=== PATIENT | male | born 1945 | race Caucasian/White ===

== ENCOUNTER → 2017-06-29 | Outpatient (CLI) | payer MEDICARE ==
[~2017-06-29] MED LIST: COUMADIN2 MG PO
--- NOTE | 2017-06-29 11:55 | Diagnostic Imaging Report ---
PROCEDURE: X-RAY UPPER GI SERIES WITH AIR CONTRAST TECHNIQUE: Effervescent crystals and barium were ingested by mouth and multiple fluoroscopic spot images of the esophagus, stomach, and proximal small bowel were obtained. Fluoroscopy time: 1.3 minutes Air Kerma: 34.25 mGy COMPARISON: None. INDICATIONS: REFLUX, HAITAL HERNIA FINDINGS: ESOPHAGUS: Motility: Within normal limits. Mucosa: Unremarkable. Distensibility: Normal. GASTROESOPHAGEAL JUNCTION: Small sliding hiatal hernia GASTROESOPHAGEAL REFLUX: Mild reflux in the lower third of the esophagus. STOMACH: Normally distensible and demonstrates normal contours and mucosal pattern. DUODENUM: Bulb and sweep are normal. Duodenal-jejunal junction is in the normal expected position. IMPRESSION: Small sliding hiatal hernia with associated gastroesophageal reflux. Dictated by: Rolando Potter M.D. on 06/29/2017 at 12:04 Electronically approved by: Rolando Potter M.D. on 06/29/2017 at 12:04
== END ==
LOC: DX 09:13
PROVIDERS: ATTEND Internal Medicine
DX: K21.0 Gastro-esophageal reflux disease with esophagitis (principal)
CPT/HCPCS: 74246

== ENCOUNTER 2019-04-03 12:48 | Emergency (ER) | payer MEDICARE ==
[~2019-04-03] VITALS: Ht 177.8 cm; Wt 74.8 kg
--- OUTSIDE RECORDS SUMMARY | 2019-04-03 12:51 | XMS REPORT ---
Author Author [facility] Address Unknown Phone Unavailable Care Team Providers Care Agriculture Engineer Name Role Phone REKHA CLEMENTS Unavailable Unavailable Problems This patient has no known problems. Allergies, Adverse Reactions, Alerts This patient has no known allergies or adverse reactions. Medications This patient has no known medications. Results Test Description Test Time Test Comments Text Results Atomic Results Result Comments UPPER GI W/AIR CONTR [place] [id number] Patient Name: LION BLOOD MR #: [id number] : 1945 Age/Sex: 71/M Req #: [id number] [facility] Physician: Ordered by: REKHA CLEMENTS MD Report #: [id number] Location: DX Room/Bed: Procedure: [id number] DX/UPPER GI W/AIR CONTR Exam Date: 06/29/17 Exam Time: 929 REPORT STATUS: Signed PROCEDURE: X-RAY UPPER GI SERIES WITH AIR CONTRAST TECHNIQUE: Effervescent crystals and barium were ingested by mouth and multiple fluoroscopic spot images of the esophagus, stomach, and proximal small bowel were obtained. Fluoroscopy time: 1.3 minutes Air Kerma: 34.25 mGy COMPARISON: None. INDICATIONS: REFLUX, HAITAL HERNIA FINDINGS: ESOPHAGUS: Motility: Within normal limits. Mucosa: Unremarkable. Distensibility: Normal. GASTROESOPHAGEAL JUNCTION: Small sliding hiatal hernia GASTROESOPHAGEAL REFLUX: Mild reflux in the lower third of the esophagus. STOMACH: Normally distensible and demonstrates normal contours and mucosal pattern. DUODENUM: Bulb and sweep are normal. Duodenal-jejunal junction is in the normal expected posi tion. IMPRESSION: Small sliding hiatal hernia with associated gastroesophageal reflux. Dictated by: Sara Howard M.D. on 06/29/2017 at 12:04 Electronically approved by: Sara Howard M.D. on 06/29/2017 at 12:04 Dictated By: SARA HOWARD MD [id number] Transcribed By: NICK on 06/29/17 1205 COPY TO: REKHA CLEMENTS MD
--- NOTE | 2019-04-03 14:08 | Diagnostic Imaging Report ---
History: Cervical radiculopathy Comparison studies: None Technique: Axial images were obtained through the cervical region. Coronal and sagittal images reconstructed from the axial data. Dose modulation, iterative reconstruction, and/or weight based adjustment of the mA/kV was utilized to reduce the radiation dose to as low as reasonably achievable. Intravenous contrast: None Findings: Airway: Patent. Atlantoaxial articulation: Moderately degenerated Alignment: Normal lordosis. 2 mm anterolisthesis of C5 on C6. No scoliosis. Cervicomedullary junction: No abnormalities. Patent foramen magnum. Soft tissues: Incidental atherosclerotic calcifications in the carotid bulbs and carotid siphons. Vertebrae: Bones moderately demineralized No fractures, neoplasm or infection. Degenerative changes: C2-C3: Minimally degenerated disc. Moderate bilateral facet arthrosis. Moderate right foraminal stenosis due to facet and uncovertebral arthrosis. Patent spinal canal and left foramen. C3-4: Mildly degenerated disc. Moderate bilateral facet arthrosis. Moderate left foraminal stenosis due to facet and uncovertebral arthrosis. Patent spinal canal and right foramen. C4-5: Minimally degenerated disc. Moderate bilateral facet arthrosis. Moderate left foraminal stenosis due to facet and uncovertebral arthrosis. Patent spinal canal and right foramen. C5-6: Minimally degenerated disc. Moderate bilateral facet arthrosis. Mild bilateral foraminal stenosis due to facet and uncovertebral arthrosis. Patent spinal canal. C6-7: Minimally degenerated disc. Moderate bilateral facet arthrosis. Mild left foraminal stenosis due to facet and uncovertebral arthrosis. Patent spinal canal and right foramen C7-T1: Patent spinal canal and foramina . IMPRESSION: 1. No acute abnormalities. 2. Bones are moderately demineralized but there are no fractures. 3. Degenerated facets throughout the cervical region. 4. The degenerative changes mostly result in foraminal stenosis from C2 through C7 worst on the right at C2-3 (series 4, image 75), on the left at C3-4 (series 4, image 89) and at C4-5 (series 4, image 103). 5. Patent spinal canal. Signed by: Dr. Toney Avila M.D. on 04/03/2019 2:05 PM
[2019-04-03] MEDS ORDERED: VALIUM2 MG PO (15:39)
[2019-04-03 15:49] VITALS: BP 177/99
== END 2019-04-03 15:50 | disposition home or self-care (01) ==
LOC: ER 12:48
DX: S16.1XXA Strain of muscle, fascia and tendon at neck level, initial encounter (principal); X50.0XXA Overexertion from strenuous movement or load, initial encounter; M54.12 Radiculopathy, cervical region; Z86.73 Personal history of transient ischemic attack (TIA), and cerebral infarction without residual deficits; Z86.718 Personal history of other venous thrombosis and embolism
CPT/HCPCS: 72125; 93005; 99283